=== PATIENT | male | born 1945 | race Hispanic/Latino ===

== ENCOUNTER → 2020-11-09 | Day surgery (SDC) | payer MEDICARE, OTHER ==
[2020-11-05 09:52] LABS: BASOPHILS % 0.6 % (0.0-1.0); EOSINOPHILS # (AUTO) 0.1 (0.0-0.4); EOSINOPHILS % 1.9 % (0.0-6.0); HEMATOCRIT 44.9 % (38.2-49.6); HEMOGLOBIN 14.7 g/dL (14.0-18.0); LYMPHOCYTES # (AUTO) 1.7 (1.0-3.2); LYMPHOCYTES % 25.4 % (18.0-39.1); MEAN CORPUSCULAR HEMOGLOBIN 29.9 pg (28-32); MEAN CORPUSCULAR HGB CONC 32.7 g/dL (31-35); MEAN CORPUSCULAR VOLUME 91.4 fL (81-99); MONOCYTES # (AUTO) 0.7 (0.2-0.8); MONOCYTES % 9.9 % (4.4-11.3); NEUTROPHILS # (AUTO) 4.2 (2.1-6.9); NEUTROPHILS % 61.8 % (38.7-80.0); PLATELET COUNT 194 x10e3/uL (140-360); RED BLOOD COUNT 4.91 x10e6/uL (4.3-5.7); RED CELL DISTRIBUTION WIDTH 12.8 % (11.7-14.4)
[~2020-11-09] MED LIST: AMLODIPINE BESY10 MG PO; AMLODIPINE BESYL5 MG PO; ASACOL400 MG PO; ASPIRIN81 MG PO; COLESTIPOL HCL1 GM PO; DICYCLOMINE HCL10 MG PO; GLUCAGON FOR INJ 1 MG VIAL ONE; IMURAN50 MG PO; ISONIAZID100 MG PO; LIDOCAINE HCL 2% LOCAL INJ 5 ML SDV VIAL INJ ONE; LOSARTAN POTASS25 MG PO; MESALAMINE4 GM/60 M1 RC; PROPOFOL IV EMULSION 10 MG/ML 20 ML VIAL ONE; PYRIDOXINE HCL25 MG PO; TERBINAFINE HC250 MG PO
[2020-11-09 12:18] VITALS: BP 144/86
== END | disposition home or self-care (01) ==
LOC: OR 06:56
PROVIDERS: ATTEND Internal Medicine Gastroenterology
DX: K51.90 Ulcerative colitis, unspecified, without complications (principal); K63.5 Polyp of colon; K57.30 Diverticulosis of large intestine without perforation or abscess without bleeding; K63.89 Other specified diseases of intestine; I10 Essential (primary) hypertension; I49.3 Ventricular premature depolarization; Z01.810 Encounter for preprocedural cardiovascular examination; Z01.812 Encounter for preprocedural laboratory examination; Z20.822 Contact with and (suspected) exposure to COVID-19; Z79.82 Long term (current) use of aspirin
CPT/HCPCS: 36415; 45380; 45385; 83993; 85025; 93005; J1610; J2001; J2704; U0002

== ENCOUNTER 2021-08-07 18:02 | Inpatient (IN) | payer MEDICARE, MEDICAID ==
[~2021-08-07] VITALS: Ht 182.9 cm; Wt 65.8 kg
[~2021-08-07 18:02] MED LIST changes: -GLUCAGON FOR INJ 1 MG VIAL ONE; -LIDOCAINE HCL 2% LOCAL INJ 5 ML SDV VIAL INJ ONE; -PROPOFOL IV EMULSION 10 MG/ML 20 ML VIAL ONE
[2021-08-07 18:55] LABS: BASOPHILS % 0.2 % (0.0-1.0); EOSINOPHILS # (AUTO) 0.1 (0.0-0.4); EOSINOPHILS % 0.8 % (0.0-6.0); HEMATOCRIT 41.3 % (38.2-49.6); HEMOGLOBIN 13.5 g/dL (14.0-18.0); LYMPHOCYTES # (AUTO) 1.1 (1.0-3.2); LYMPHOCYTES % 8.4 % (18.0-39.1); MEAN CORPUSCULAR HEMOGLOBIN 30.3 pg (28-32); MEAN CORPUSCULAR HGB CONC 32.7 g/dL (31-35); MEAN CORPUSCULAR VOLUME 92.6 fL (81-99); MONOCYTES # (AUTO) 0.9 (0.2-0.8); MONOCYTES % 7.2 % (4.4-11.3); NEUTROPHILS # (AUTO) 10.8 (2.1-6.9); PLATELET COUNT 216 x10e3/uL (140-360); RED BLOOD COUNT 4.46 x10e6/uL (4.3-5.7); RED CELL DISTRIBUTION WIDTH 13.4 % (11.7-14.4)
[2021-08-07 19:19] LABS: ALBUMIN 3.9 g/dL (3.5-5.0); ALBUMIN/GLOBULIN RATIO 1.1 (0.8-2.0); ANION GAP 13.9 mmol/L (8-16); CALCIUM 8.9 mg/dL (8.4-10.2); CREATININE, SERUM 0.83 mg/dL (0.72-1.25); POTASSIUM 3.9 mmol/L (3.5-5.1)
[2021-08-07] MEDS ORDERED: SODIUM CHLORIDE 0.9% 50ML 50 ML ONE (20:25)
[2021-08-07] MEDS ORDERED: IOPAMIDOL 370 MG/ML 200 ML INFUS..BTL INJ ONE (20:25)
[2021-08-07] MEDS ORDERED: ONDANSETRON HCL INJ 2MG/ML 2ML 2 MG/ML VIAL IV PRN (21:00)
[2021-08-07] MEDS ORDERED: Morphine 4mg Syringe 4 MG/ML INJ IV PRN (21:00)
[2021-08-07] MEDS: SODIUM CHLORIDE 0.9% 1000ML 1,000 ML IV SCH (21:03)
[2021-08-07] MEDS: PIPERACILLIN/TAZOBACTAM 3.375 GM in SODIUM CHLORIDE 0.9% 50ML 50 ML IV SCH (21:04)
[2021-08-07] MEDS ORDERED: SODIUM CHLORIDE 0.9% 1000ML 1,000 ML ONE (21:10)
[2021-08-07 22:40] VITALS: BP 132/82
[2021-08-07 23:00] VITALS: BP 134/79
[2021-08-07 23:13] VITALS: BP 134/79
[2021-08-07 23:21] VITALS: BP 134/79
[2021-08-08] VITALS (7 sets, daily range): BP systolic 114–141; BP diastolic 68–74
[2021-08-08] MEDS ORDERED: METRONIDAZOLE 500 MG TAB PO STA (00:35)
[2021-08-08] MEDS ORDERED: METRONIDAZOLE 500 MG TAB PO ONE (00:45)
[2021-08-08] MEDS ORDERED: MESALAMINE 1,000 MG SUPP RC ONE (03:30)
[2021-08-08] MEDS ORDERED: MESALAMINE 400 MG CAP PO ONE (03:30)
[2021-08-08] MEDS ORDERED: ACETAMINOPHEN 325 MG TAB PO PRN (04:00)
[2021-08-08] MEDS ORDERED: DICYCLOMINE HCL 10 MG CAP PO PRN (04:00)
[2021-08-08] MEDS ORDERED: HYDRALAZINE HCL 20 MG/ML VIAL IV PRN (04:00)
[2021-08-08] MEDS ORDERED: POLYETHYLENE GLYCOL 3350 17 GM PACK PO PRN (04:00)
[2021-08-08] MEDS ORDERED: ONDANSETRON HCL INJ 2MG/ML 2ML 2 MG/ML VIAL IV PRN (04:00)
[2021-08-08] MEDS ORDERED: METRONIDAZOLE 500 MG TAB PO SCH (06:00)
[2021-08-08] MEDS: SODIUM CHLORIDE 0.9% 1000ML 1,000 ML IV SCH ×3 (06:06→22:02)
[2021-08-08] MEDS: METRONIDAZOLE 500 MG TAB PO SCH ×3 (06:06→18:07)
[2021-08-08] MEDS: PIPERACILLIN/TAZOBACTAM 3.375 GM in SODIUM CHLORIDE 0.9% 50ML 50 ML IV SCH ×3 (06:06→18:06)
[2021-08-08] MEDS: DOCUSATE SODIUM 100 MG CAP PO SCH ×3 (08:36→22:02)
[2021-08-08] MEDS: MULTIVITAMINS/MINERALS TAB PO SCH (08:37)
[2021-08-08] MEDS: MESALAMINE 400 MG CAP PO SCH ×2 (09:30→18:21)
[2021-08-08 10:40] LABS: BASOPHILS % 0.3 % (0.0-1.0); EOSINOPHILS # (AUTO) 0.1 (0.0-0.4); EOSINOPHILS % 1.5 % (0.0-6.0); HEMATOCRIT 42.6 % (38.2-49.6); HEMOGLOBIN 13.6 g/dL (14.0-18.0); LYMPHOCYTES % 10.4 % (18.0-39.1); MEAN CORPUSCULAR HEMOGLOBIN 29.8 pg (28-32); MEAN CORPUSCULAR HGB CONC 31.9 g/dL (31-35); MEAN CORPUSCULAR VOLUME 93.4 fL (81-99); MONOCYTES # (AUTO) 0.8 (0.2-0.8); NEUTROPHILS # (AUTO) 7.3 (2.1-6.9); NEUTROPHILS % 78.5 % (38.7-80.0); PLATELET COUNT 194 x10e3/uL (140-360); RED BLOOD COUNT 4.56 x10e6/uL (4.3-5.7); RED CELL DISTRIBUTION WIDTH 13.4 % (11.7-14.4)
[2021-08-08 10:52] LABS: INR 1.05; PROTHROMBIN TIME 14.6 seconds (11.9-14.5)
[2021-08-08 10:59] LABS: ALBUMIN 3.4 g/dL (3.5-5.0); ALBUMIN/GLOBULIN RATIO 1.1 (0.8-2.0); ANION GAP 11.7 mmol/L (8-16); CALCIUM 8.4 mg/dL (8.4-10.2); CREATININE, SERUM 0.74 mg/dL (0.72-1.25); POTASSIUM 3.7 mmol/L (3.5-5.1)
[2021-08-08] MEDS: LOSARTAN POTASSIUM 25 MG TAB PO SCH (22:03)
[2021-08-08] MEDS: MESALAMINE 1,000 MG SUPP RC SCH (22:03)
[2021-08-09] VITALS (8 sets, daily range): BP systolic 124–138; BP diastolic 69–83
[2021-08-09] MEDS: METRONIDAZOLE 500 MG TAB PO SCH ×5 (00:45→23:50)
[2021-08-09] MEDS: PIPERACILLIN/TAZOBACTAM 3.375 GM in SODIUM CHLORIDE 0.9% 50ML 50 ML IV SCH ×5 (00:45→23:50)
[2021-08-09] MEDS: SODIUM CHLORIDE 0.9% 1000ML 1,000 ML IV SCH ×3 (05:37→20:41)
[2021-08-09 05:52] LABS: BASOPHILS # (AUTO) 0.1 (0.0-0.1); BASOPHILS % 0.6 % (0.0-1.0); EOSINOPHILS # (AUTO) 0.2 (0.0-0.4); EOSINOPHILS % 2.5 % (0.0-6.0); HEMATOCRIT 41.4 % (38.2-49.6); HEMOGLOBIN 13.5 g/dL (14.0-18.0); LYMPHOCYTES # (AUTO) 1.4 (1.0-3.2); LYMPHOCYTES % 14.5 % (18.0-39.1); MEAN CORPUSCULAR HGB CONC 32.6 g/dL (31-35); MONOCYTES # (AUTO) 1.1 (0.2-0.8); MONOCYTES % 11.8 % (4.4-11.3); NEUTROPHILS # (AUTO) 6.8 (2.1-6.9); NEUTROPHILS % 70.4 % (38.7-80.0); PLATELET COUNT 236 x10e3/uL (140-360); RED CELL DISTRIBUTION WIDTH 13.5 % (11.7-14.4)
[2021-08-09 06:36] LABS: ALBUMIN 3.4 g/dL (3.5-5.0); ANION GAP 13.6 mmol/L (8-16); CALCIUM 8.2 mg/dL (8.4-10.2); CREATININE, SERUM 0.77 mg/dL (0.72-1.25); POTASSIUM 3.6 mmol/L (3.5-5.1)
[2021-08-09] MEDS: MESALAMINE 400 MG CAP PO SCH ×2 (08:55→17:00)
[2021-08-09] MEDS: MULTIVITAMINS/MINERALS TAB PO SCH (08:55)
[2021-08-09] MEDS: DICYCLOMINE HCL 10 MG CAP PO SCH ×3 (08:55→20:40)
[2021-08-09 10:58] LABS: WBC,FECAL (FECAL LACTOFERRIN) POSITIVE (NEGATIVE)
[2021-08-09 13:51] LABS: CLARITY,URINE CLEAR (CLEAR); COLOR,URINE YELLOW (YELLOW); KETONES,URINE NEGATIVE (NEGATIVE); LEUKOCYTE ESTERASE ,URINE NEGATIVE (NEGATIVE); MUCUS,URINE RARE (RARE); NITRITE,URINE NEGATIVE (NEGATIVE); PROTEIN,URINE DIPSTICK NEGATIVE (NEGATIVE); RBC,URINE 0-5 /HPF (0-5); URINE UROBILINOGEN 0.2 mg/dL (0.2 - 1); WBC,URINE (MAN) 0-5 /HPF (0-5)
[2021-08-09 14:57] LABS: C DIFFICILE TOXIN A&B AMP PROB NEGATIVE (NEGATIVE)
[2021-08-09] MEDS: MESALAMINE 1,000 MG SUPP RC SCH (20:41)
[2021-08-09] MEDS: LOSARTAN POTASSIUM 25 MG TAB PO SCH (20:41)
[2021-08-10] VITALS (9 sets, daily range): BP systolic 111–147; BP diastolic 66–85
[2021-08-10] MEDS: SODIUM CHLORIDE 0.9% 1000ML 1,000 ML IV SCH ×4 (01:00→20:23)
[2021-08-10] MEDS: METRONIDAZOLE 500 MG TAB PO SCH ×4 (06:21→23:41)
[2021-08-10] MEDS: PIPERACILLIN/TAZOBACTAM 3.375 GM in SODIUM CHLORIDE 0.9% 50ML 50 ML IV SCH ×4 (06:21→23:41)
[2021-08-10] MEDS: DICYCLOMINE HCL 10 MG CAP PO SCH ×3 (08:54→21:28)
[2021-08-10] MEDS: MESALAMINE 400 MG CAP PO SCH ×2 (08:54→17:10)
[2021-08-10] MEDS: MULTIVITAMINS/MINERALS TAB PO SCH (09:01)
[2021-08-10] MEDS: MESALAMINE 1,000 MG SUPP RC SCH (21:28)
[2021-08-10] MEDS: LOSARTAN POTASSIUM 25 MG TAB PO SCH (21:29)
[2021-08-11 04:01] VITALS: BP 131/81
[2021-08-11] MEDS: PIPERACILLIN/TAZOBACTAM 3.375 GM in SODIUM CHLORIDE 0.9% 50ML 50 ML IV SCH ×3 (05:21→18:00)
[2021-08-11] MEDS: METRONIDAZOLE 500 MG TAB PO SCH ×3 (05:21→18:00)
[2021-08-11 08:05] VITALS: BP 155/80
[2021-08-11] MEDS: DICYCLOMINE HCL 10 MG CAP PO SCH ×2 (08:45→15:38)
[2021-08-11] MEDS: MESALAMINE 400 MG CAP PO SCH ×2 (08:46→17:29)
[2021-08-11] MEDS: MULTIVITAMINS/MINERALS TAB PO SCH (08:46)
[2021-08-11 08:55] VITALS: BP 155/80
[2021-08-11 12:28] VITALS: BP 138/70
[2021-08-11 15:29] VITALS: BP 129/79
[2021-08-11] MEDS ORDERED: DIPHENOXYLATE/ATROPINE TAB PO ONE (16:45)
[2021-08-11] MEDS ORDERED: ONDANSETRON HCL 4 MG ORAL DISINTEGRATING TAB PO PRN (18:00)
[2021-08-11 20:00] VITALS: BP 131/79
[2021-08-11] MEDS: LOSARTAN POTASSIUM 25 MG TAB PO SCH (21:22)
[2021-08-11] MEDS: MESALAMINE 1,000 MG SUPP RC SCH (21:22)
[2021-08-12] VITALS (8 sets, daily range): BP systolic 128–147; BP diastolic 77–90
[2021-08-12] MEDS: METRONIDAZOLE 500 MG TAB PO SCH ×4 (00:18→18:37)
[2021-08-12] MEDS: DICYCLOMINE HCL 20 MG TAB PO SCH ×4 (00:18→18:37)
[2021-08-12] MEDS: PIPERACILLIN/TAZOBACTAM 3.375 GM in SODIUM CHLORIDE 0.9% 50ML 50 ML IV SCH (00:18)
[2021-08-12] MEDS: MULTIVITAMINS/MINERALS TAB PO SCH (09:09)
[2021-08-12] MEDS: MESALAMINE 400 MG CAP PO SCH ×2 (09:09→17:34)
[2021-08-12] MEDS: LOSARTAN POTASSIUM 25 MG TAB PO SCH (21:00)
[2021-08-12] MEDS: MESALAMINE 1,000 MG SUPP RC SCH (21:00)
[2021-08-13 00:28] VITALS: BP 137/82
[2021-08-13] MEDS: DICYCLOMINE HCL 20 MG TAB PO SCH ×4 (00:35→17:04)
[2021-08-13] MEDS: METRONIDAZOLE 500 MG TAB PO SCH ×4 (00:35→17:04)
[2021-08-13] MEDS ORDERED: CHOLESTYRAMINE 4 GM PACKET PO STA (00:40)
[2021-08-13 05:40] VITALS: BP 140/94
[2021-08-13 08:00] VITALS: BP 143/93
[2021-08-13 08:09] VITALS: BP 143/93
[2021-08-13] MEDS ORDERED: CHOLESTYRAMINE 4 GM PACKET PO SCH (09:00)
[2021-08-13] MEDS: MESALAMINE 400 MG CAP PO SCH ×2 (09:25→17:04)
[2021-08-13] MEDS: MULTIVITAMINS/MINERALS TAB PO SCH (09:25)
[2021-08-13 12:00] VITALS: BP 147/73
[2021-08-13 20:00] VITALS: BP 124/78
[2021-08-13] MEDS ORDERED: CHOLESTYRAMINE L4 GM PO (20:01)
[2021-08-13] MEDS ORDERED: CANASA1000 MG RC (20:01)
[2021-08-13] MEDS ORDERED: Mesalamine PO (20:03)
[2021-08-13] MEDS ORDERED: MIRALAX17 GM PO (20:04)
[2021-08-13] MEDS ORDERED: METRONIDAZOLE500 MG PO (20:10)
[2021-08-13] MEDS: MESALAMINE 1,000 MG SUPP RC SCH (21:43)
[2021-08-13] MEDS: LOSARTAN POTASSIUM 25 MG TAB PO SCH (21:43)
== END 2021-08-13 21:00 | disposition home or self-care (01) | DRG 386 ==
LOC: ER 18:11 → ERHOLD 21:25 → ICU 22:34 → MED/SURG3 08-08 10:55
PROVIDERS: ADMIT Internal Medicine; ATTEND Internal Medicine
DX: K51.211 Ulcerative (chronic) proctitis with rectal bleeding (principal); K76.6 Portal hypertension; K51.911 Ulcerative colitis, unspecified with rectal bleeding; K40.90 Unilateral inguinal hernia, without obstruction or gangrene, not specified as recurrent; I10 Essential (primary) hypertension; Z20.822 Contact with and (suspected) exposure to COVID-19
CPT/HCPCS: 36415; 74177; 80053; 81001; 83605; 83630; 83993; 85025; 85610; 86141; 87040; 87045; 87177; 87328; 87493; 94799; 99251; 99284; J2543; J7030; Q9967; U0002

== ENCOUNTER → 2021-10-11 | Day surgery (SDC) | payer MEDICARE ==
[2021-10-07 14:06] LABS: BASOPHILS # (AUTO) 0.1 (0.0-0.1); BASOPHILS % 0.5 % (0.0-1.0); EOSINOPHILS % 0.3 % (0.0-6.0); HEMATOCRIT 43.7 % (38.2-49.6); HEMOGLOBIN 13.6 g/dL (14.0-18.0); LYMPHOCYTES # (AUTO) 1.7 (1.0-3.2); LYMPHOCYTES % 17.6 % (18.0-39.1); MEAN CORPUSCULAR HEMOGLOBIN 29.8 pg (28-32); MEAN CORPUSCULAR HGB CONC 31.1 g/dL (31-35); MEAN CORPUSCULAR VOLUME 95.6 fL (81-99); MONOCYTES # (AUTO) 0.6 (0.2-0.8); MONOCYTES % 6.2 % (4.4-11.3); NEUTROPHILS # (AUTO) 7.2 (2.1-6.9); NEUTROPHILS % 75.1 % (38.7-80.0); PLATELET COUNT 263 x10e3/uL (140-360); RED BLOOD COUNT 4.57 x10e6/uL (4.3-5.7)
[~2021-10-11] MED LIST changes: +CANASA1000 MG RC; +CHOLESTYRAMINE L4 GM PO; +FENTANYL CITRATE/PF 100MCG/2 ML INJ ONE; +HUMIRA40 MG/0.8 IJ; +LIDOCAINE HCL 2% LOCAL INJ 5 ML SDV VIAL INJ ONE; +METHYLPREDNISOLONE SOD SUCC 125 MG/2ML VIAL ONE; +METOPROLOL SUCC50 MG PO; +METRONIDAZOLE500 MG PO; +MIDAZOLAM HCL 2 MG/2 ML VIAL ONE; +MIRALAX17 GM PO; +Mesalamine PO; +ONDANSETRON HCL INJ 2MG/ML 2ML 2 MG/ML VIAL ONE; +POVIDONE IODINE 0.05% 0.05 % ML PO ONE; +PROPOFOL IV EMULSION 10 MG/ML 20 ML VIAL ONE
[2021-10-11 09:05] VITALS: BP 136/76
== END | disposition home or self-care (01) ==
LOC: OR 05:44
PROVIDERS: ATTEND Internal Medicine Gastroenterology
DX: Z09 Encounter for follow-up examination after completed treatment for conditions other than malignant neoplasm (principal); K63.5 Polyp of colon; K62.1 Rectal polyp; K51.30 Ulcerative (chronic) rectosigmoiditis without complications; K57.30 Diverticulosis of large intestine without perforation or abscess without bleeding; K59.00 Constipation, unspecified; I10 Essential (primary) hypertension; I48.91 Unspecified atrial fibrillation; I49.1 Atrial premature depolarization; E78.5 Hyperlipidemia, unspecified; I44.4 Left anterior fascicular block; M54.9 Dorsalgia, unspecified; M54.2 Cervicalgia; Z01.810 Encounter for preprocedural cardiovascular examination; Z01.812 Encounter for preprocedural laboratory examination; Z20.822 Contact with and (suspected) exposure to COVID-19; Z79.899 Other long term (current) drug therapy
CPT/HCPCS: 36415; 45380; 45385; 85025; 93005; J2001; J2250; J2405; J2704; J2930; J3010; U0002; 45378

== ENCOUNTER 2021-12-31 22:36 | Emergency (ER) | payer MEDICARE, OTHER ==
[~2021-12-31] VITALS: Ht 182.9 cm; Wt 65.8 kg
[~2021-12-31 22:36] MED LIST changes: -FENTANYL CITRATE/PF 100MCG/2 ML INJ ONE; -LIDOCAINE HCL 2% LOCAL INJ 5 ML SDV VIAL INJ ONE; -METHYLPREDNISOLONE SOD SUCC 125 MG/2ML VIAL ONE; -MIDAZOLAM HCL 2 MG/2 ML VIAL ONE; -ONDANSETRON HCL INJ 2MG/ML 2ML 2 MG/ML VIAL ONE; -POVIDONE IODINE 0.05% 0.05 % ML PO ONE; -PROPOFOL IV EMULSION 10 MG/ML 20 ML VIAL ONE
[2021-12-31 23:47] LABS: BASOPHILS # (AUTO) 0.1 (0.0-0.1); BASOPHILS % 0.8 % (0.0-1.0); EOSINOPHILS # (AUTO) 0.2 (0.0-0.4); EOSINOPHILS % 2.3 % (0.0-6.0); HEMOGLOBIN 13.7 g/dL (14.0-18.0); LYMPHOCYTES % 25.9 % (18.0-39.1); MEAN CORPUSCULAR HGB CONC 31.9 g/dL (31-35); MEAN CORPUSCULAR VOLUME 94.1 fL (81-99); MONOCYTES # (AUTO) 0.7 (0.2-0.8); MONOCYTES % 9.5 % (4.4-11.3); NEUTROPHILS # (AUTO) 4.8 (2.1-6.9); PLATELET COUNT 186 x10e3/uL (140-360); RED BLOOD COUNT 4.57 x10e6/uL (4.3-5.7); RED CELL DISTRIBUTION WIDTH 14.7 % (11.7-14.4)
[2022-01-01 00:03] LABS: ANION GAP 11.9 mmol/L (8-16); CALCIUM 9.1 mg/dL (8.4-10.2); CREATININE, SERUM 0.82 mg/dL (0.72-1.25); POTASSIUM 3.9 mmol/L (3.5-5.1)
[2022-01-01] MEDS ORDERED: IOPAMIDOL 370 MG/ML 100 ML INFUS..BTL INJ ONE (00:40)
== END 2022-01-01 02:40 | disposition home or self-care (01) ==
LOC: ER 23:04
DX: R10.84 Generalized abdominal pain (principal); M25.512 Pain in left shoulder; R41.0 Disorientation, unspecified; V48.5XXD Car driver injured in noncollision transport accident in traffic accident, subsequent encounter; Y92.89 Other specified places as the place of occurrence of the external cause; K62.89 Other specified diseases of anus and rectum; I10 Essential (primary) hypertension; K40.90 Unilateral inguinal hernia, without obstruction or gangrene, not specified as recurrent
CPT/HCPCS: 36415; 70450; 71260; 72125; 74177; 80048; 85025; 99284; Q9967

== ENCOUNTER → 2022-09-08 | Day surgery (SDC) | payer MEDICARE, OTHER ==
[2022-09-05 10:36] LABS: BASOPHILS # (AUTO) 0.1 (0.0-0.1); BASOPHILS % 0.6 % (0.0-1.0); EOSINOPHILS # (AUTO) 0.1 (0.0-0.4); EOSINOPHILS % 1.3 % (0.0-6.0); HEMATOCRIT 46.9 % (38.2-49.6); HEMOGLOBIN 14.7 g/dL (14.0-18.0); LYMPHOCYTES # (AUTO) 2.3 (1.0-3.2); LYMPHOCYTES % 30.2 % (18.0-39.1); MEAN CORPUSCULAR HEMOGLOBIN 29.9 pg (28-32); MEAN CORPUSCULAR HGB CONC 31.3 g/dL (31-35); MEAN CORPUSCULAR VOLUME 95.3 fL (81-99); MONOCYTES # (AUTO) 0.7 (0.2-0.8); MONOCYTES % 8.7 % (4.4-11.3); NEUTROPHILS # (AUTO) 4.5 (2.1-6.9); NEUTROPHILS % 58.8 % (38.7-80.0); PLATELET COUNT 171 x10e3/uL (140-360); RED BLOOD COUNT 4.92 x10e6/uL (4.3-5.7); RED CELL DISTRIBUTION WIDTH 12.9 % (11.7-14.4)
[~2022-09-08] MED LIST changes: +GLUCAGON FOR INJ 1 MG VIAL ONE; +HYOSCYAMINE SULFATE 0.5 MG/ML INJ ONE; +LIDOCAINE HCL 2% LOCAL INJ 5 ML SDV VIAL INJ ONE; +METOCLOPRAMIDE HCL 10 MG/2ML VIAL ONE; +ONDANSETRON HCL INJ 2MG/ML 2ML 2 MG/ML VIAL ONE; +PHENYLEPHRINE HCL 1% 10 MG/ML VIAL ONE; +POVIDONE IODINE 0.05% 0.05 % ML PO ONE; +PROPOFOL IV EMULSION 0 ML IV ONE; +PROPOFOL IV EMULSION 10 MG/ML 20 ML VIAL ONE; +SIMETHICONE 40 MG/0.6 ML BTL ONE; +SUGAMMADEX SODIUM 200 MG/2 ML VIAL IV ONE
[2022-09-08 09:00] VITALS: BP 132/85
[2022-09-08 09:20] LABS: INR 1.04; PROTHROMBIN TIME 13.8 seconds (11.9-14.5)
[2022-09-08 09:29] LABS: ALBUMIN 3.7 g/dL (3.5-5.0); ALBUMIN/GLOBULIN RATIO 1.1 (0.8-2.0); ANION GAP 15.8 mmol/L (8-16); CREATININE, SERUM 1.08 mg/dL (0.72-1.25); POTASSIUM 3.8 mmol/L (3.5-5.1)
== END | disposition home or self-care (01) ==
LOC: OR 06:04
PROVIDERS: ATTEND Internal Medicine Gastroenterology
DX: K51.30 Ulcerative (chronic) rectosigmoiditis without complications (principal); K63.5 Polyp of colon; K62.1 Rectal polyp; K57.30 Diverticulosis of large intestine without perforation or abscess without bleeding; I10 Essential (primary) hypertension; I49.3 Ventricular premature depolarization; E78.5 Hyperlipidemia, unspecified; I44.4 Left anterior fascicular block; Z01.812 Encounter for preprocedural laboratory examination; Z79.899 Other long term (current) drug therapy
CPT/HCPCS: 36415 ×2; 45380; 45385; 80053; 85025; 85610; 86140; J1610; J1980; J2001; J2370; J2405; J2704; J2765; 45378